=== PATIENT | female | born 1985 | race Caucasian/White ===

== ENCOUNTER → 2023-07-28 | Outpatient (CLI) | payer MEDICAID | END | disposition home or self-care (01) | LOC: MRI 15:12 | PROVIDERS: ATTEND Nurse Practitioner | DX: M50.322 Other cervical disc degeneration at C5-C6 level (principal); M48.02 Spinal stenosis, cervical region; M62.838 Other muscle spasm; M54.6 Pain in thoracic spine; M47.814 Spondylosis without myelopathy or radiculopathy, thoracic region; M25.511 Pain in right shoulder | CPT/HCPCS: 72141 ==

== ENCOUNTER 2024-05-29 06:14 | Outpatient (CLI) | payer MEDICAID ==
[2024-05-29] MEDS ORDERED: LIDOcaine 1%/PF 5ML 10 MG/ML VIAL ONE (06:38)
[2024-05-29] MEDS ORDERED: GADOTERATE MEGLUMINE 7.5 MMOL/15 ML VIAL IV ONE (06:39)
[2024-05-29] MEDS ORDERED: LIDOcaine 1% 30ml preserv. free vial ONE (06:39)
[2024-05-29] MEDS ORDERED: iohexol 300 MG/1 ML 50ml polymer ONE (06:39)
== END 2024-05-29 23:59 | disposition home or self-care (01) ==
LOC: MRI 06:14
PROVIDERS: ATTEND Orthopaedic Surgery
DX: S43.431A Superior glenoid labrum lesion of right shoulder, initial encounter (principal); X58.XXXA Exposure to other specified factors, initial encounter; Y93.89 Activity, other specified; Y92.89 Other specified places as the place of occurrence of the external cause; Y99.8 Other external cause status
CPT/HCPCS: 23350; 73222; 77002; A9575; J2003; J3490; Q9967